=== PATIENT | male | born 1965 | race Hispanic/Latino ===

== ENCOUNTER 2018-03-03 15:44 | Emergency (ER) | payer OTHER ==
[2018-03-03] MEDS ORDERED: MORPHINE SULFATE 8 MG/ML VIAL ONE (16:06)
[2018-03-03] MEDS ORDERED: ONDANSETRON HCL 4 MG/2 ML VIAL ONE (16:06)
[2018-03-03] MEDS ORDERED: KETOROLAC TROMETHAMINE 15MG/ML ONE (17:44)
[2018-03-03] MEDS ORDERED: MORPHINE SULFATE 4 MG/1ML SYG ONE (17:44)
== END 2018-03-03 19:22 | disposition home or self-care (01) ==
LOC: EDH 15:44
DX: S46.091A Other injury of muscle(s) and tendon(s) of the rotator cuff of right shoulder, initial encounter (principal); S43.492A Other sprain of left shoulder joint, initial encounter; X50.9XXA Other and unspecified overexertion or strenuous movements or postures, initial encounter; Y93.89 Activity, other specified; Y92.69 Other specified industrial and construction area as the place of occurrence of the external cause; Y99.8 Other external cause status
CPT/HCPCS: 73030; 96374; 96375; 96376; 99284; J1885; J2270 ×2; J2405

== ENCOUNTER 2018-06-14 11:01 | Inpatient (IN) | payer OTHER ==
[2018-06-14] VITALS: BP 149/99
[~2018-06-14] VITALS: Ht 175.3 cm; Wt 105.6 kg
[~2018-06-14 11:01] MED LIST: AEC81 PO; AMLO5TAB7 PO; CANA1TAB3 PO; LOSA50TA25 PO; PRAV40TA3 PO
[2018-06-14 11:35] LABS: BASOPHILS % (AUTO) 0.6 % (0.0-5.0); EOSINOPHILS % (AUTO) 0.1 % (0.0-8.0); HEMATOCRIT 38.9 % (42-54); LYMPHOCYTES % (AUTO) 7.3 % (21.0-51.0); MEAN CORPUSCULAR HEMOGLOBIN 34.4 pg (27.0-33.0); MEAN CORPUSCULAR HGB CONC 35.2 g/dL (32.0-36.0); MEAN CORPUSCULAR VOLUME 97.9 fL (79-99); MONOCYTES % (AUTO) 5.3 % (3.0-13.0); NEUTROPHILS % (AUTO) 86.7 % (40.0-77.0); NUCLEATED RED BLOOD CELLS 0.7 % (0.0-0.19); PLATELET COUNT (AUTO) 184 K/uL (130-400); RED BLOOD CELL COUNT(AUTO) 3.97 MIL/uL (4.50-6.20); RED CELL DISTRIBUTION WIDTH 14.9 % (11.0-15.5); WHITE BLOOD COUNT (AUTO) 8.8 K/uL (4.8-10.8)
[2018-06-14 11:42] LABS: CREATININE 0.9 mg/dL (0.5-1.5); POTASSIUM 3.1 mmol/L (3.5-5.1)
[2018-06-14 11:47] LABS: BILIRUBIN,TOTAL 0.8 mg/dL (0.2-1.0); TOTAL PROTEIN, SERUM 6.1 g/dL (6.0-8.3)
[2018-06-14 11:48] LABS: INR 1.08 (0.85-1.15); PARTIAL THROMBOPLASTIN TIME 24.4 SEC (26.3-35.5); PROTHROMBIN TIME 11.3 SEC (9.6-11.6)
[2018-06-14 12:51] LABS: B-TYPE NATRIURETIC PEPTIDE 212 pg/mL (0-100)
[2018-06-14] MEDS ORDERED: POTASSIUM BICARB/CIT AC 25 MEQ TABLET.EFF ONE (18:25)
[2018-06-14] MEDS ORDERED: MORPHINE SULFATE 2 MG/ML 1ML SYG ONE (20:02)
[2018-06-14] MEDS ORDERED: ONDANSETRON HCL 4 MG/2 ML VIAL ONE (20:03)
[2018-06-14 21:34] VITALS: BP 143/115
[2018-06-14] MEDS ORDERED: METF-444 PO (22:44)
[2018-06-14] MEDS ORDERED: POTA20TA12 PO (22:44)
[2018-06-14] MEDS ORDERED: LOSA50TA25 PO (22:44)
[2018-06-14] MEDS ORDERED: CLIN300C9 PO (22:50)
[2018-06-14] MEDS: SODIUM CHLORIDE 0.9% 1000ML 1,000 ML IV SCH (23:16)
[2018-06-14] MEDS ORDERED: ONDANSETRON HCL MDV 20ML 2 MG/ML VIAL IV PRN (23:30)
[2018-06-14] MEDS ORDERED: DEXTROSE 50%-WATER 50 ML DISP.SYRIN IV PRN (23:30)
[2018-06-14] MEDS ORDERED: MORPHINE SULFATE 2 MG/ML 1ML SYG IV PRN (23:30)
[2018-06-14] MEDS ORDERED: GLUCAGON 1MG KIT 1 MG ML IM PRN (23:30)
[2018-06-14] MEDS ORDERED: MORPHINE SULFATE 4 MG/1ML SYG IV PRN (23:30)
[2018-06-14] MEDS ORDERED: MAGNESIUM 2GM PREMIX 50ML 50 ML IV PRN (23:45)
[2018-06-14 23:48] LABS: CREATININE 0.6 mg/dL (0.5-1.5); MAGNESIUM 1.8 mg/dL (1.80-2.40)
[2018-06-14 23:53] LABS: POTASSIUM 2.9 mmol/L (3.5-5.1)
[2018-06-15] MEDS ORDERED: POTASSIUM CHLORIDE 20MEQ/100ML 100 ML IV ONE (00:01)
[2018-06-15] MEDS ORDERED: LIDOCAINE HCL-MPF 1% 2ML VIAL ONE (00:01)
[2018-06-15] MEDS ORDERED: MAGNESIUM 2GM PREMIX 50ML 50 ML IV ONE (00:13)
[2018-06-15 02:26] LABS: APPEARANCE,URINE Clear (CLEAR); BILIRUBIN,URINE Negative (NEGATIVE); COLOR,URINE Yellow (YELLOW); GLUCOSE, URINE (UA) Negative (NEGATIVE); KETONES,URINE 15 mg/dL (NEGATIVE); LEUKOCYTE ESTERASE ,URINE Negative (NEGATIVE); NITRATE,URINE Negative (NEGATIVE); OCCULT BLOOD,URINE Negative (NEGATIVE); PH,URINE 6.5 (5.0-8.0); PROTEIN,URINE POS 2+ (NEGATIVE)
[2018-06-15] MEDS: CLINDAMYCIN 600 MG/D5% WATER 50 ML IV SCH ×4 (02:39→23:36)
[2018-06-15 02:46] LABS: RBC,URINE 0-1 /HPF (0-1); WBC,URINE 0-1 /HPF (0-1)
[2018-06-15 02:47] LABS: BACTERIA,URINE Rare /HPF (None Seen); SQUAMOUS EPITHELIAL CELL,UR 0-2 /HPF (0-2)
[2018-06-15] MEDS: POTASSIUM CHLORIDE 20MEQ/100ML 100 ML IV PRN (03:15)
[2018-06-15] MEDS: LIDOCAINE HCL-MPF 1% 2ML VIAL IVP PRN (03:16)
[2018-06-15 04:06] VITALS: BP 158/98
[2018-06-15] MEDS: INSULIN HUMULIN R 100 UNIT/ML 3ML SQ SCH ×5 (06:00→20:14)
[2018-06-15] MEDS: SODIUM CHLORIDE 0.9% 1000ML 1,000 ML IV SCH ×2 (07:16→09:49)
[2018-06-15 07:34] LABS: MEAN CORPUSCULAR HEMOGLOBIN 34.2 pg (27.0-33.0); MEAN CORPUSCULAR HGB CONC 34.8 g/dL (32.0-36.0); MEAN CORPUSCULAR VOLUME 98.2 fL (79-99); NUCLEATED RED BLOOD CELLS 0.5 % (0.0-0.19); PLATELET COUNT (AUTO) 145 K/uL (130-400); RED BLOOD CELL COUNT(AUTO) 3.47 MIL/uL (4.50-6.20); WHITE BLOOD COUNT (AUTO) 7.5 K/uL (4.8-10.8)
[2018-06-15 07:51] LABS: ALBUMIN 2.5 g/dL (3.5-5.0); BILIRUBIN,TOTAL 0.7 mg/dL (0.2-1.0); CREATININE 0.8 mg/dL (0.5-1.5); MAGNESIUM 2.1 mg/dL (1.80-2.40); POTASSIUM 3.3 mmol/L (3.5-5.1)
[2018-06-15 07:52] LABS: HEMOGLOBIN A1C 7.9 % (4.0-6.0)
[2018-06-15 07:56] VITALS: BP 152/92
[2018-06-15] MEDS ORDERED: FAMOTIDINE/PF 20 MG/2 ML VIAL IV SCH (09:00)
[2018-06-15] MEDS ORDERED: DIATR MEGLU/DIATRIZOATE SODIUM 30 ML BOTTLE ONE ×2 (09:13→13:26)
[2018-06-15] MEDS: METFORMIN HCL 500 MG TAB.SR.24H PO SCH (09:29)
[2018-06-15] MEDS: ENOXAPARIN SODIUM 100 MG/1 ML SQ SCH (09:49)
[2018-06-15] MEDS: LOSARTAN 50 MG TABLET PO SCH ×2 (09:56→20:14)
[2018-06-15 11:28] VITALS: BP 147/93
[2018-06-15] MEDS ORDERED: IOHEXOL-350 75 ML VIAL IV ONE (12:06)
[2018-06-15] MEDS: LACTULOSE 20 GM/30 ML UDCUP PO SCH (15:17)
[2018-06-15] MEDS: AMLODIPINE BESYLATE 5 MG TAB PO SCH (15:17)
[2018-06-15 15:18] VITALS: BP 148/99
[2018-06-15] MEDS: POTASSIUM CHLORIDE 20 MEQ ERTAB PO SCH ×2 (15:18→20:14)
[2018-06-15] MEDS: ASPIRIN 81 MG EC TAB PO SCH (15:19)
[2018-06-15 19:00] VITALS: BP 136/101
[2018-06-15] MEDS: DOCUSATE SODIUM 100 MG CAP PO SCH (20:14)
[2018-06-15] MEDS: SIMVASTATIN 20 MG TABLET PO SCH (20:14)
[2018-06-15 23:00] VITALS: BP 139/88
[2018-06-16 03:00] VITALS: BP 169/113
[2018-06-16] MEDS: INSULIN HUMULIN R 100 UNIT/ML 3ML SQ SCH ×4 (05:01→20:55)
[2018-06-16 05:05] LABS: BASOPHILS % (AUTO) 0.1 % (0.0-5.0); EOSINOPHILS % (AUTO) 0.1 % (0.0-8.0); HEMATOCRIT 34.2 % (42-54); LYMPHOCYTES % (AUTO) 8.6 % (21.0-51.0); MEAN CORPUSCULAR HEMOGLOBIN 34.8 pg (27.0-33.0); MEAN CORPUSCULAR HGB CONC 35.3 g/dL (32.0-36.0); MEAN CORPUSCULAR VOLUME 98.8 fL (79-99); MONOCYTES % (AUTO) 6.9 % (3.0-13.0); NEUTROPHILS % (AUTO) 84.3 % (40.0-77.0); NUCLEATED RED BLOOD CELLS 0.2 % (0.0-0.19); PLATELET COUNT (AUTO) 151 K/uL (130-400); RED BLOOD CELL COUNT(AUTO) 3.46 MIL/uL (4.50-6.20); RED CELL DISTRIBUTION WIDTH 15.4 % (11.0-15.5); WHITE BLOOD COUNT (AUTO) 7.3 K/uL (4.8-10.8)
[2018-06-16] MEDS: CLONIDINE HCL 0.1 MG TABLET PO PRN (05:10)
[2018-06-16] MEDS: CLINDAMYCIN 600 MG/D5% WATER 50 ML IV SCH ×2 (06:10→14:35)
[2018-06-16 07:36] LABS: MAGNESIUM 1.9 mg/dL (1.80-2.40)
[2018-06-16 07:52] VITALS: BP 168/93
[2018-06-16 07:57] LABS: POTASSIUM 2.8 mmol/L (3.5-5.1)
[2018-06-16] MEDS: METFORMIN HCL 500 MG TAB.SR.24H PO SCH (08:00)
[2018-06-16] MEDS ORDERED: POTASSIUM CHLORIDE 10% ELIXIR 20 MEQ/15 ML UDCUP PO PRN (08:45)
[2018-06-16] MEDS ORDERED: LIDOCAINE HCL-MPF 1% 2ML VIAL IVP PRN (08:45)
[2018-06-16] MEDS ORDERED: POTASSIUM CHLORIDE 20MEQ/100ML 100 ML IV PRN (08:45)
[2018-06-16] MEDS ORDERED: POTASSIUM CHLORIDE 20 MEQ ERTAB PO SCH (09:00)
[2018-06-16] MEDS ORDERED: AMLODIPINE BESYLATE 5 MG TAB PO SCH (09:00)
[2018-06-16] MEDS ORDERED: ASPIRIN 81 MG EC TAB PO SCH (09:00)
[2018-06-16] MEDS: PANTOPRAZOLE SODIUM 40 MG TABLET.DR PO SCH (09:06)
[2018-06-16] MEDS: ASPIRIN 81 MG EC TAB PO SCH (09:06)
[2018-06-16] MEDS: LOSARTAN 50 MG TABLET PO SCH ×2 (09:06→20:55)
[2018-06-16] MEDS: POTASSIUM CHLORIDE 20 MEQ ERTAB PO SCH ×4 (09:07→18:00)
[2018-06-16] MEDS: AMLODIPINE BESYLATE 5 MG TAB PO SCH (09:07)
[2018-06-16] MEDS: DOCUSATE SODIUM 100 MG CAP PO SCH ×2 (09:07→20:55)
[2018-06-16] MEDS: ENOXAPARIN SODIUM 100 MG/1 ML SQ SCH (09:12)
[2018-06-16] MEDS: LIDOCAINE HCL-MPF 1% 2ML VIAL IVP PRN (09:12)
[2018-06-16] MEDS: POTASSIUM CHLORIDE 20MEQ/100ML 100 ML IV PRN (09:13)
[2018-06-16] MEDS: LACTULOSE 20 GM/30 ML UDCUP PO SCH (11:15)
[2018-06-16 11:49] VITALS: BP 158/95
[2018-06-16 15:49] VITALS: BP 149/94
[2018-06-16 19:00] VITALS: BP 161/108
[2018-06-16] MEDS: SIMVASTATIN 20 MG TABLET PO SCH (20:55)
[2018-06-16 23:00] VITALS: BP 162/107
[2018-06-17] MEDS ORDERED: CLINDAMYCIN 600 MG/D5% WATER 50 ML IV ONE (00:36)
[2018-06-17] MEDS: CLINDAMYCIN 600 MG/D5% WATER 50 ML IV SCH (00:38)
[2018-06-17] MEDS: CLONIDINE HCL 0.1 MG TABLET PO PRN (00:39)
[2018-06-17 03:00] VITALS: BP 157/99
[2018-06-17] MEDS: POTASSIUM CHLORIDE 20 MEQ ERTAB PO PRN ×3 (05:47→18:36)
[2018-06-17] MEDS: INSULIN HUMULIN R 100 UNIT/ML 3ML SQ SCH ×4 (06:52→21:00)
[2018-06-17 08:00] VITALS: BP 155/111
[2018-06-17] MEDS: DOCUSATE SODIUM 100 MG CAP PO SCH ×2 (08:19→21:00)
[2018-06-17] MEDS: PANTOPRAZOLE SODIUM 40 MG TABLET.DR PO SCH (08:19)
[2018-06-17] MEDS: METFORMIN HCL 500 MG TAB.SR.24H PO SCH (08:19)
[2018-06-17] MEDS: POTASSIUM CHLORIDE 20 MEQ ERTAB PO SCH (08:21)
[2018-06-17] MEDS: LOSARTAN 50 MG TABLET PO SCH ×2 (08:21→21:37)
[2018-06-17] MEDS: ASPIRIN 81 MG EC TAB PO SCH (08:21)
[2018-06-17] MEDS: AMLODIPINE BESYLATE 5 MG TAB PO SCH (08:21)
[2018-06-17] MEDS: LACTULOSE 20 GM/30 ML UDCUP PO SCH (08:22)
[2018-06-17] MEDS: ENOXAPARIN SODIUM 100 MG/1 ML SQ SCH (08:22)
[2018-06-17 11:38] VITALS: BP 144/95
[2018-06-17 15:59] VITALS: BP 133/92
[2018-06-17 19:38] VITALS: BP 122/87
[2018-06-17] MEDS: SIMVASTATIN 20 MG TABLET PO SCH (21:37)
[2018-06-17] MEDS ORDERED: LACTULOSE 20 GM/30 ML UDCUP PO ONE (22:20)
[2018-06-17] MEDS ORDERED: MAG HYDROX/AL HYDROX/SIMETH ES 30 ML SUSP UDCUP PO ONE (22:20)
[2018-06-17 23:47] VITALS: BP 157/99
[2018-06-18] MEDS: POTASSIUM CHLORIDE 20 MEQ ERTAB PO PRN ×3 (02:51→17:04)
[2018-06-18 03:52] VITALS: BP 143/94
[2018-06-18 05:00] LABS: BASOPHILS % (AUTO) 0.1 % (0.0-5.0); EOSINOPHILS % (AUTO) 0.1 % (0.0-8.0); HEMATOCRIT 34.3 % (42-54); LYMPHOCYTES % (AUTO) 8.1 % (21.0-51.0); MEAN CORPUSCULAR HEMOGLOBIN 34.7 pg (27.0-33.0); MEAN CORPUSCULAR HGB CONC 35.2 g/dL (32.0-36.0); MEAN CORPUSCULAR VOLUME 98.6 fL (79-99); NEUTROPHILS % (AUTO) 85.7 % (40.0-77.0); NUCLEATED RED BLOOD CELLS 0.2 % (0.0-0.19); PLATELET COUNT (AUTO) 156 K/uL (130-400); RED BLOOD CELL COUNT(AUTO) 3.47 MIL/uL (4.50-6.20); RED CELL DISTRIBUTION WIDTH 15.3 % (11.0-15.5); WHITE BLOOD COUNT (AUTO) 7.7 K/uL (4.8-10.8)
[2018-06-18 05:19] LABS: ALBUMIN 2.6 g/dL (3.5-5.0); BILIRUBIN,TOTAL 0.7 mg/dL (0.2-1.0); CREATININE 0.8 mg/dL (0.5-1.5); POTASSIUM 3.1 mmol/L (3.5-5.1); TOTAL PROTEIN, SERUM 5.2 g/dL (6.0-8.3)
[2018-06-18] MEDS: INSULIN HUMULIN R 100 UNIT/ML 3ML SQ SCH ×4 (06:05→20:39)
[2018-06-18 08:00] VITALS: BP 151/96
[2018-06-18] MEDS: POTASSIUM CHLORIDE 20 MEQ ERTAB PO SCH (09:51)
[2018-06-18] MEDS: LOSARTAN 50 MG TABLET PO SCH ×2 (09:51→20:39)
[2018-06-18] MEDS: PANTOPRAZOLE SODIUM 40 MG TABLET.DR PO SCH (09:51)
[2018-06-18] MEDS: ASPIRIN 81 MG EC TAB PO SCH (09:51)
[2018-06-18] MEDS: DOCUSATE SODIUM 100 MG CAP PO SCH ×2 (09:51→20:38)
[2018-06-18] MEDS: SPIRONOLACTONE 25 MG TAB PO SCH (09:51)
[2018-06-18] MEDS: AMLODIPINE BESYLATE 5 MG TAB PO SCH ×2 (09:51→20:39)
[2018-06-18] MEDS: ENOXAPARIN SODIUM 100 MG/1 ML SQ SCH (09:52)
[2018-06-18] MEDS: METFORMIN HCL 500 MG TAB.SR.24H PO SCH (09:57)
[2018-06-18] MEDS ORDERED: ALPRAZOLAM 0.25 MG TABLET PO SCH (10:00)
[2018-06-18] MEDS: LACTULOSE 20 GM/30 ML UDCUP PO SCH (11:15)
[2018-06-18] MEDS ORDERED: METOPROLOL TARTRATE 25 MG TAB PO SCH (11:45)
[2018-06-18 11:53] VITALS: BP 136/102
[2018-06-18 16:00] VITALS: BP 141/95
[2018-06-18 20:00] VITALS: BP 134/83
[2018-06-18] MEDS: SIMVASTATIN 20 MG TABLET PO SCH (20:39)
[2018-06-19] VITALS (7 sets, daily range): BP systolic 116–149; BP diastolic 85–101
[2018-06-19 05:53] LABS: EOSINOPHILS % (AUTO) 0.1 % (0.0-8.0); HEMATOCRIT 35.5 % (42-54); LYMPHOCYTES % (AUTO) 7.3 % (21.0-51.0); MEAN CORPUSCULAR HGB CONC 34.3 g/dL (32.0-36.0); MEAN CORPUSCULAR VOLUME 99.2 fL (79-99); MONOCYTES % (AUTO) 5.5 % (3.0-13.0); NEUTROPHILS % (AUTO) 87.1 % (40.0-77.0); NUCLEATED RED BLOOD CELLS 0.3 % (0.0-0.19); PLATELET COUNT (AUTO) 137 K/uL (130-400); RED BLOOD CELL COUNT(AUTO) 3.58 MIL/uL (4.50-6.20); RED CELL DISTRIBUTION WIDTH 15.5 % (11.0-15.5); WHITE BLOOD COUNT (AUTO) 7.9 K/uL (4.8-10.8)
[2018-06-19 06:12] LABS: CREATININE 0.7 mg/dL (0.5-1.5); MAGNESIUM 1.9 mg/dL (1.80-2.40)
[2018-06-19] MEDS: INSULIN HUMULIN R 100 UNIT/ML 3ML SQ SCH ×4 (06:26→21:00)
[2018-06-19] MEDS: POTASSIUM CHLORIDE 20 MEQ ERTAB PO PRN ×4 (06:52→23:17)
[2018-06-19] MEDS ORDERED: MAGNESIUM 2GM PREMIX 50ML 50 ML IV PRN (08:00)
[2018-06-19] MEDS: DOCUSATE SODIUM 100 MG CAP PO SCH ×2 (08:56→19:56)
[2018-06-19] MEDS: ASPIRIN 81 MG EC TAB PO SCH (08:56)
[2018-06-19] MEDS: AMLODIPINE BESYLATE 5 MG TAB PO SCH ×2 (08:56→19:56)
[2018-06-19] MEDS: POTASSIUM CHLORIDE 20 MEQ ERTAB PO SCH (08:56)
[2018-06-19] MEDS: SPIRONOLACTONE 25 MG TAB PO SCH (08:56)
[2018-06-19] MEDS: LOSARTAN 50 MG TABLET PO SCH ×2 (08:56→19:56)
[2018-06-19] MEDS: METOPROLOL TARTRATE 25 MG TAB PO SCH (08:56)
[2018-06-19] MEDS: METFORMIN HCL 500 MG TAB.SR.24H PO SCH (08:56)
[2018-06-19] MEDS: PANTOPRAZOLE SODIUM 40 MG TABLET.DR PO SCH (08:57)
[2018-06-19] MEDS: ENOXAPARIN SODIUM 100 MG/1 ML SQ SCH (08:57)
[2018-06-19] MEDS: LACTULOSE 20 GM/30 ML UDCUP PO SCH (10:33)
[2018-06-19] MEDS ORDERED: SPIRONOLACTONE 25 MG TAB PO SCH (11:45)
[2018-06-19] MEDS ORDERED: HYDRALAZINE HCL 20 MG/ML VIAL IV PRN (11:45)
[2018-06-19] MEDS: POTASSIUM CHLORIDE 20MEQ/100ML 100 ML IV PRN (16:45)
[2018-06-19] MEDS: LIDOCAINE HCL-MPF 1% 2ML VIAL IVP PRN (16:45)
[2018-06-19] MEDS: SIMVASTATIN 20 MG TABLET PO SCH (19:56)
[2018-06-20] VITALS (9 sets, daily range): BP systolic 133–156; BP diastolic 44–104
[2018-06-20] MEDS: POTASSIUM CHLORIDE 20 MEQ ERTAB PO PRN (02:52)
[2018-06-20 06:08] LABS: BASOPHILS % (AUTO) 0.1 % (0.0-5.0); EOSINOPHILS % (AUTO) 0.1 % (0.0-8.0); HEMATOCRIT 37.2 % (42-54); LYMPHOCYTES % (AUTO) 6.9 % (21.0-51.0); MEAN CORPUSCULAR HEMOGLOBIN 34.7 pg (27.0-33.0); MEAN CORPUSCULAR HGB CONC 35.1 g/dL (32.0-36.0); MEAN CORPUSCULAR VOLUME 98.9 fL (79-99); MONOCYTES % (AUTO) 6.1 % (3.0-13.0); NEUTROPHILS % (AUTO) 86.8 % (40.0-77.0); NUCLEATED RED BLOOD CELLS 0.2 % (0.0-0.19); PLATELET COUNT (AUTO) 166 K/uL (130-400); RED BLOOD CELL COUNT(AUTO) 3.76 MIL/uL (4.50-6.20); RED CELL DISTRIBUTION WIDTH 15.8 % (11.0-15.5)
[2018-06-20 06:23] LABS: INR 1.09 (0.85-1.15); PARTIAL THROMBOPLASTIN TIME 26.4 SEC (26.3-35.5); PROTHROMBIN TIME 11.4 SEC (9.6-11.6)
[2018-06-20 06:25] LABS: ALBUMIN 2.8 g/dL (3.5-5.0); BILIRUBIN,TOTAL 0.9 mg/dL (0.2-1.0); CREATININE 0.7 mg/dL (0.5-1.5); POTASSIUM 3.5 mmol/L (3.5-5.1); TOTAL PROTEIN, SERUM 5.6 g/dL (6.0-8.3)
[2018-06-20] MEDS: INSULIN HUMULIN R 100 UNIT/ML 3ML SQ SCH ×4 (06:26→21:00)
[2018-06-20] MEDS: LIDOCAINE HCL-MPF 1% 2ML VIAL IVP PRN (06:36)
[2018-06-20] MEDS: POTASSIUM CHLORIDE 20MEQ/100ML 100 ML IV PRN (06:36)
[2018-06-20] MEDS: METFORMIN HCL 500 MG TAB.SR.24H PO SCH (08:00)
[2018-06-20] MEDS: DOCUSATE SODIUM 100 MG CAP PO SCH ×2 (09:00→21:00)
[2018-06-20] MEDS: PANTOPRAZOLE SODIUM 40 MG TABLET.DR PO SCH (09:00)
[2018-06-20] MEDS: POTASSIUM CHLORIDE 20 MEQ ERTAB PO SCH (09:00)
[2018-06-20] MEDS: ENOXAPARIN SODIUM 100 MG/1 ML SQ SCH (09:00)
[2018-06-20] MEDS: SPIRONOLACTONE 25 MG TAB PO SCH (09:00)
[2018-06-20] MEDS: ASPIRIN 81 MG EC TAB PO SCH (09:00)
[2018-06-20] MEDS: AMLODIPINE BESYLATE 5 MG TAB PO SCH (09:04)
[2018-06-20] MEDS: LOSARTAN 50 MG TABLET PO SCH ×2 (09:04→21:36)
[2018-06-20] MEDS: METOPROLOL TARTRATE 25 MG TAB PO SCH (09:04)
[2018-06-20] MEDS: LACTULOSE 20 GM/30 ML UDCUP PO SCH (11:15)
[2018-06-20] MEDS ORDERED: IOHEXOL 350 MG/ML 100ML INFUS..BTL IV ONE (15:42)
[2018-06-20] MEDS ORDERED: LIDOCAINE HCL 2% 20ML ONE (15:42)
[2018-06-20] MEDS ORDERED: IOHEXOL-350 50ML VIAL IV ONE (15:42)
[2018-06-20] MEDS ORDERED: NITROGLYCERIN 5 MG/ML 10 ML VIAL IV ONE (16:24)
[2018-06-20] MEDS ORDERED: FENTANYL CITRATE PF 50 MCG/1 ML 2ML VIAL ONE (16:35)
[2018-06-20] MEDS ORDERED: MIDAZOLAM HCL 1 MG/ML 2ML VIAL ONE (16:35)
[2018-06-20] MEDS: SODIUM CHLORIDE 0.9% 10 ML VIAL IVP SCH (18:03)
[2018-06-20] MEDS: SIMVASTATIN 20 MG TABLET PO SCH (21:35)
[2018-06-21] MEDS: LOSARTAN 50 MG TABLET PO SCH ×3 (00:15→20:39)
[2018-06-21] MEDS: SIMVASTATIN 20 MG TABLET PO SCH ×2 (00:16→20:39)
[2018-06-21] MEDS: AMLODIPINE BESYLATE 5 MG TAB PO SCH ×3 (00:17→20:39)
[2018-06-21] MEDS: SODIUM CHLORIDE 0.9% 10 ML VIAL IVP SCH ×4 (01:23→20:56)
[2018-06-21 03:22] VITALS: BP 129/84
[2018-06-21 03:47] LABS: BASOPHILS % (AUTO) 0.1 % (0.0-5.0); HEMATOCRIT 37.2 % (42-54); LYMPHOCYTES % (AUTO) 4.7 % (21.0-51.0); MEAN CORPUSCULAR HEMOGLOBIN 34.1 pg (27.0-33.0); MEAN CORPUSCULAR HGB CONC 34.3 g/dL (32.0-36.0); MEAN CORPUSCULAR VOLUME 99.5 fL (79-99); MONOCYTES % (AUTO) 5.4 % (3.0-13.0); NEUTROPHILS % (AUTO) 89.8 % (40.0-77.0); NUCLEATED RED BLOOD CELLS 0.5 % (0.0-0.19); PLATELET COUNT (AUTO) 140 K/uL (130-400); RED BLOOD CELL COUNT(AUTO) 3.73 MIL/uL (4.50-6.20); RED CELL DISTRIBUTION WIDTH 15.5 % (11.0-15.5); WHITE BLOOD COUNT (AUTO) 9.7 K/uL (4.8-10.8)
[2018-06-21 04:07] LABS: CREATININE 0.7 mg/dL (0.5-1.5)
[2018-06-21 04:08] LABS: POTASSIUM 2.9 mmol/L (3.5-5.1)
[2018-06-21] MEDS ORDERED: POTASSIUM CHLORIDE 10 MEQ/TAB.SA PO ONE ×6 (04:23→06:35)
[2018-06-21] MEDS ORDERED: SODIUM CHLORIDE 0.9% 250 ML IV ONE (04:24)
[2018-06-21] MEDS: POTASSIUM CHLORIDE 20MEQ/100ML 100 ML IV PRN (04:31)
[2018-06-21] MEDS: LIDOCAINE HCL-MPF 1% 2ML VIAL IVP PRN (04:31)
[2018-06-21] MEDS: INSULIN HUMULIN R 100 UNIT/ML 3ML SQ SCH ×4 (06:04→20:55)
[2018-06-21 07:26] VITALS: BP_SYST 106; BP_SYST 133; BP_DIAS 49; BP_DIAS 71
[2018-06-21] MEDS: SPIRONOLACTONE 25 MG TAB PO SCH (08:45)
[2018-06-21] MEDS: METOPROLOL TARTRATE 25 MG TAB PO SCH (08:45)
[2018-06-21] MEDS: DOCUSATE SODIUM 100 MG CAP PO SCH ×2 (08:45→20:39)
[2018-06-21] MEDS: PANTOPRAZOLE SODIUM 40 MG TABLET.DR PO SCH (08:46)
[2018-06-21] MEDS: POTASSIUM CHLORIDE 20 MEQ ERTAB PO SCH (08:46)
[2018-06-21] MEDS: ASPIRIN 81 MG EC TAB PO SCH (08:46)
[2018-06-21] MEDS: METFORMIN HCL 500 MG TAB.SR.24H PO SCH (08:49)
[2018-06-21] MEDS: LACTULOSE 20 GM/30 ML UDCUP PO SCH (10:26)
[2018-06-21] MEDS: AMILORIDE HCL 5 MG TABLET PO SCH (10:44)
[2018-06-21 11:22] VITALS: BP 133/99
[2018-06-21 16:35] VITALS: BP 130/58
[2018-06-21 19:40] VITALS: BP 137/98
[2018-06-21 23:52] VITALS: BP 130/93
[2018-06-22 03:38] LABS: HEMATOCRIT 35.1 % (42-54); MEAN CORPUSCULAR HEMOGLOBIN 35.1 pg (27.0-33.0); MEAN CORPUSCULAR HGB CONC 34.9 g/dL (32.0-36.0); MEAN CORPUSCULAR VOLUME 100.6 fL (79-99); NUCLEATED RED BLOOD CELLS 0.2 % (0.0-0.19); PLATELET COUNT (AUTO) 139 K/uL (130-400); RED BLOOD CELL COUNT(AUTO) 3.49 MIL/uL (4.50-6.20); RED CELL DISTRIBUTION WIDTH 15.9 % (11.0-15.5); WHITE BLOOD COUNT (AUTO) 9.5 K/uL (4.8-10.8)
[2018-06-22 03:39] VITALS: BP 141/101
[2018-06-22 03:55] LABS: CREATININE 0.8 mg/dL (0.5-1.5); POTASSIUM 3.7 mmol/L (3.5-5.1); TROPONIN I 0.1 ng/mL (0.00-0.06)
[2018-06-22] MEDS: INSULIN HUMULIN R 100 UNIT/ML 3ML SQ SCH ×4 (05:34→21:00)
[2018-06-22] MEDS: GLIPIZIDE 5 MG TABLET PO SCH (06:46)
[2018-06-22 07:26] VITALS: BP 143/107
[2018-06-22] MEDS: AMLODIPINE BESYLATE 5 MG TAB PO SCH ×2 (08:17→22:04)
[2018-06-22] MEDS: DOCUSATE SODIUM 100 MG CAP PO SCH ×2 (08:17→22:04)
[2018-06-22] MEDS: METOPROLOL TARTRATE 25 MG TAB PO SCH (08:17)
[2018-06-22] MEDS: PANTOPRAZOLE SODIUM 40 MG TABLET.DR PO SCH (08:18)
[2018-06-22] MEDS: LOSARTAN 50 MG TABLET PO SCH ×2 (08:18→22:04)
[2018-06-22] MEDS: ASPIRIN 81 MG EC TAB PO SCH (08:18)
[2018-06-22] MEDS: SODIUM CHLORIDE 0.9% 10 ML VIAL IVP SCH ×2 (08:19→17:28)
[2018-06-22] MEDS: POTASSIUM CHLORIDE 20 MEQ ERTAB PO SCH (08:19)
[2018-06-22] MEDS: LACTULOSE 20 GM/30 ML UDCUP PO SCH (10:31)
[2018-06-22] MEDS: AMILORIDE HCL 5 MG TABLET PO SCH (10:31)
[2018-06-22 16:16] VITALS: BP 140/89
[2018-06-22] MEDS: ALPRAZOLAM 0.25 MG TABLET PO PRN (17:28)
[2018-06-22 17:30] VITALS: BP 150/97
[2018-06-22 19:00] VITALS: BP 137/88
[2018-06-22] MEDS: SIMVASTATIN 20 MG TABLET PO SCH (22:04)
[2018-06-23] VITALS: BP 134/92
[2018-06-23] MEDS: SODIUM CHLORIDE 0.9% 10 ML VIAL IVP SCH ×3 (00:29→18:02)
[2018-06-23 04:00] VITALS: BP 134/90
[2018-06-23 04:52] LABS: HEMATOCRIT 34.1 % (42-54); MEAN CORPUSCULAR HEMOGLOBIN 34.6 pg (27.0-33.0); MEAN CORPUSCULAR HGB CONC 34.8 g/dL (32.0-36.0); MEAN CORPUSCULAR VOLUME 99.3 fL (79-99); NUCLEATED RED BLOOD CELLS 0.3 % (0.0-0.19); PLATELET COUNT (AUTO) 123 K/uL (130-400); RED BLOOD CELL COUNT(AUTO) 3.43 MIL/uL (4.50-6.20); RED CELL DISTRIBUTION WIDTH 16.1 % (11.0-15.5)
[2018-06-23 05:08] LABS: CREATININE 0.7 mg/dL (0.5-1.5); POTASSIUM 3.7 mmol/L (3.5-5.1)
[2018-06-23] MEDS: INSULIN HUMULIN R 100 UNIT/ML 3ML SQ SCH ×4 (06:10→21:00)
[2018-06-23 07:00] VITALS: BP 137/101
[2018-06-23] MEDS: ASPIRIN 81 MG EC TAB PO SCH (09:12)
[2018-06-23] MEDS: DOCUSATE SODIUM 100 MG CAP PO SCH ×2 (09:12→21:01)
[2018-06-23] MEDS: AMLODIPINE BESYLATE 5 MG TAB PO SCH ×2 (09:12→21:01)
[2018-06-23] MEDS: AMILORIDE HCL 5 MG TABLET PO SCH (09:12)
[2018-06-23] MEDS: LOSARTAN 50 MG TABLET PO SCH ×2 (09:12→21:01)
[2018-06-23] MEDS: POTASSIUM CHLORIDE 20 MEQ ERTAB PO SCH (09:12)
[2018-06-23] MEDS: PANTOPRAZOLE SODIUM 40 MG TABLET.DR PO SCH (09:12)
[2018-06-23] MEDS: METOPROLOL TARTRATE 25 MG TAB PO SCH (09:13)
[2018-06-23] MEDS: GLIPIZIDE 5 MG TABLET PO SCH (09:13)
[2018-06-23 11:00] VITALS: BP 128/93
[2018-06-23] MEDS: LACTULOSE 20 GM/30 ML UDCUP PO SCH (11:15)
[2018-06-23] MEDS: ALPRAZOLAM 0.25 MG TABLET PO PRN (11:58)
[2018-06-23 15:57] VITALS: BP 134/95
[2018-06-23 19:00] VITALS: BP 130/75
[2018-06-23] MEDS: SIMVASTATIN 20 MG TABLET PO SCH (21:01)
[2018-06-24] VITALS: BP 131/93
[2018-06-24] MEDS: SODIUM CHLORIDE 0.9% 10 ML VIAL IVP SCH ×2 (02:10→09:15)
[2018-06-24 04:00] VITALS: BP 119/85
[2018-06-24] MEDS: INSULIN HUMULIN R 100 UNIT/ML 3ML SQ SCH ×2 (06:33→11:18)
[2018-06-24] MEDS: GLIPIZIDE 5 MG TABLET PO SCH (07:30)
[2018-06-24 07:55] VITALS: BP 133/97
[2018-06-24] MEDS: AMILORIDE HCL 5 MG TABLET PO SCH (10:03)
[2018-06-24] MEDS: LOSARTAN 50 MG TABLET PO SCH (10:04)
[2018-06-24] MEDS: ASPIRIN 81 MG EC TAB PO SCH (10:04)
[2018-06-24] MEDS: DOCUSATE SODIUM 100 MG CAP PO SCH (10:04)
[2018-06-24] MEDS: POTASSIUM CHLORIDE 20 MEQ ERTAB PO SCH (10:04)
[2018-06-24] MEDS: AMLODIPINE BESYLATE 5 MG TAB PO SCH (10:04)
[2018-06-24] MEDS: METOPROLOL TARTRATE 25 MG TAB PO SCH (10:04)
[2018-06-24] MEDS: PANTOPRAZOLE SODIUM 40 MG TABLET.DR PO SCH (10:04)
[2018-06-24] MEDS: LACTULOSE 20 GM/30 ML UDCUP PO SCH (11:15)
[2018-06-24 11:35] VITALS: BP 130/91
== END 2018-06-24 15:05 | disposition home or self-care (01) | DRG 190 ==
LOC: EDH 11:01 → EDHIP 20:00 → 3DH 21:00 → 2BH 06-20 18:02 → 3BH 06-22 17:41
PROVIDERS: ADMIT Internal Medicine; ATTEND Internal Medicine
PROC: 4A023N7 Measurement of Cardiac Sampling and Pressure, Left Heart, Percutaneous Approach (ICD-10-PCS; principal; 2018-06-20)
PROC: B2111ZZ Fluoroscopy of Multiple Coronary Arteries using Low Osmolar Contrast (ICD-10-PCS; 2018-06-20)
PROC: B2151ZZ Fluoroscopy of Left Heart using Low Osmolar Contrast (ICD-10-PCS; 2018-06-20)
DX: I21.4 Non-ST elevation (NSTEMI) myocardial infarction (principal); E44.0 Moderate protein-calorie malnutrition; E83.42 Hypomagnesemia; I11.9 Hypertensive heart disease without heart failure; E66.01 Morbid (severe) obesity due to excess calories; E11.9 Type 2 diabetes mellitus without complications; I45.10 Unspecified right bundle-branch block; F41.9 Anxiety disorder, unspecified; E78.5 Hyperlipidemia, unspecified; N20.0 Calculus of kidney; E78.00 Pure hypercholesterolemia, unspecified; N28.9 Disorder of kidney and ureter, unspecified; K52.9 Noninfective gastroenteritis and colitis, unspecified; I25.110 Atherosclerotic heart disease of native coronary artery with unstable angina pectoris; K56.41 Fecal impaction; E87.6 Hypokalemia; Z68.36 Body mass index [BMI] 36.0-36.9, adult; Z79.84 Long term (current) use of oral hypoglycemic drugs; Z82.49 Family history of ischemic heart disease and other diseases of the circulatory system; Z79.82 Long term (current) use of aspirin; Z79.899 Other long term (current) drug therapy
CPT/HCPCS: 36415; 71045; 74021; 74178; 76882; 80048; 80053; 81001; 82550; 82948; 83036; 83690; 83735; 83874; 83880; 83935; 83970; 84132; 84133; 84484; 85025; 85027; 85610; 85730; 93005; 93458; 99156; 99157; C1894; J0360; J1644; J1650; J1815; J2250; J2405; J3010; J3475; J3480; J3490; J7030; Q9963; Q9967

== ENCOUNTER 2018-07-21 00:26 | Inpatient (IN) | payer OTHER ==
[~2018-07-21] VITALS: Ht 172.7 cm; Wt 99.5 kg
[~2018-07-21 00:26] MED LIST changes: -CANA1TAB3 PO; +METF-444 PO; +POTA20TA12 PO
[2018-07-21 00:48] LABS: INR 1.32 (0.85-1.15); PARTIAL THROMBOPLASTIN TIME 24.7 SEC (26.3-35.5); PROTHROMBIN TIME 13.8 SEC (9.6-11.6)
[2018-07-21 00:52] LABS: BASOPHILS % (AUTO) 0.8 % (0.0-5.0); HEMATOCRIT 22.6 % (42-54); LYMPHOCYTES % (AUTO) 9.7 % (21.0-51.0); MEAN CORPUSCULAR HEMOGLOBIN 31.8 pg (27.0-33.0); MEAN CORPUSCULAR HGB CONC 33.3 g/dL (32.0-36.0); MEAN CORPUSCULAR VOLUME 95.3 fL (79-99); MONOCYTES % (AUTO) 6.8 % (3.0-13.0); NEUTROPHILS % (AUTO) 82.7 % (40.0-77.0); NUCLEATED RED BLOOD CELLS 0.5 % (0.0-0.19); PLATELET COUNT (AUTO) 113 K/uL (130-400); RED BLOOD CELL COUNT(AUTO) 2.37 MIL/uL (4.50-6.20); RED CELL DISTRIBUTION WIDTH 18.5 % (11.0-15.5); WHITE BLOOD COUNT (AUTO) 13.6 K/uL (4.8-10.8)
[2018-07-21 00:54] LABS: ALBUMIN 1.7 g/dL (3.5-5.0); BILIRUBIN,DIRECT 0.1 mg/dL (0.0-0.3); BILIRUBIN,TOTAL 0.3 mg/dL (0.2-1.0); CREATININE 1.3 mg/dL (0.5-1.5); POTASSIUM 3.3 mmol/L (3.5-5.1); TOTAL PROTEIN, SERUM 3.8 g/dL (6.0-8.3)
[2018-07-21] MEDS ORDERED: ZOSYN 3.375GM+NS 50ML 50 ML IV ONE (01:06)
[2018-07-21 02:10] LABS: APPEARANCE,URINE Cloudy (CLEAR); BILIRUBIN,URINE Negative (NEGATIVE); COLOR,URINE Yellow (YELLOW); GLUCOSE, URINE (UA) Negative (NEGATIVE); KETONES,URINE Negative (NEGATIVE); LEUKOCYTE ESTERASE ,URINE Negative (NEGATIVE); NITRATE,URINE Negative (NEGATIVE); OCCULT BLOOD,URINE Negative (NEGATIVE); PROTEIN,URINE Negative (NEGATIVE); UROBILINOGEN,URINE 0.2 mg/dL (0.2-1.0)
[2018-07-21 02:18] LABS: AMORPHOUS SEDIMENT,UR Few /LPF (None Seen); BACTERIA,URINE None Seen /HPF (None Seen); MUCUS,URINE Few LPF (None Seen); RBC,URINE None Seen /HPF (0-1); SQUAMOUS EPITHELIAL CELL,UR Few /HPF (0-2); WBC,URINE 0-1 /HPF (0-1)
[2018-07-21] MEDS ORDERED: LIDOCAINE HCL-MPF 1% 2ML VIAL IVP PRN (03:30)
[2018-07-21] MEDS ORDERED: GLUCAGON 1MG KIT 1 MG ML IM PRN (04:00)
[2018-07-21] MEDS ORDERED: DEXTROSE 50%-WATER 50 ML DISP.SYRIN IV PRN (04:00)
[2018-07-21] MEDS ORDERED: MORPHINE SULFATE 2 MG/ML 1ML SYG IV PRN (05:00)
[2018-07-21] MEDS ORDERED: MORPHINE SULFATE 4 MG/1ML SYG IV PRN (05:00)
[2018-07-21] MEDS ORDERED: ACETAMINOPHEN 325 MG TAB PO PRN (05:00)
[2018-07-21] MEDS ORDERED: NITROGLYCERIN 0.4 MG SL TAB SL PRN (05:00)
[2018-07-21] MEDS: INSULIN HUMULIN R 100 UNIT/ML 3ML SQ SCH ×3 (06:00→17:02)
[2018-07-21 06:03] VITALS: BP 132/63
[2018-07-21 07:49] LABS: ALBUMIN 1.7 g/dL (3.5-5.0); BILIRUBIN,TOTAL 0.5 mg/dL (0.2-1.0); CREATININE 1.4 mg/dL (0.5-1.5); MAGNESIUM 1.9 mg/dL (1.80-2.40); POTASSIUM 3.3 mmol/L (3.5-5.1); TOTAL PROTEIN, SERUM 3.6 g/dL (6.0-8.3)
[2018-07-21 08:00] LABS: HEMOGLOBIN A1C 6.2 % (4.0-6.0)
[2018-07-21 08:06] LABS: TROPONIN I 1.05 ng/mL (0.00-0.06)
[2018-07-21 08:15] VITALS: BP 97/66
[2018-07-21] MEDS: ZOSYN 3.375GM+NS 50ML 50 ML IV SCH ×3 (08:29→20:53)
[2018-07-21] MEDS ORDERED: GLIP5TAB11 PO (08:34)
[2018-07-21] MEDS ORDERED: CARV3.12 PO (08:34)
[2018-07-21] MEDS ORDERED: PANTOPRAZOLE 40 MG/VIAL IVP SCH (09:00)
[2018-07-21 09:08] LABS: BASOPHILS % (AUTO) 0.2 % (0.0-5.0); HEMATOCRIT 21.7 % (42-54); LYMPHOCYTES % (AUTO) 15.1 % (21.0-51.0); MEAN CORPUSCULAR HEMOGLOBIN 31.8 pg (27.0-33.0); MEAN CORPUSCULAR HGB CONC 35.1 g/dL (32.0-36.0); MEAN CORPUSCULAR VOLUME 90.7 fL (79-99); MONOCYTES % (AUTO) 7.1 % (3.0-13.0); NEUTROPHILS % (AUTO) 77.6 % (40.0-77.0); NUCLEATED RED BLOOD CELLS 3.5 % (0.0-0.19); PLATELET COUNT (AUTO) 224 K/uL (130-400); RED CELL DISTRIBUTION WIDTH 16.5 % (11.0-15.5); WHITE BLOOD COUNT (AUTO) 9.4 K/uL (4.8-10.8)
[2018-07-21 11:08] VITALS: BP 107/66
[2018-07-21] MEDS: PANTOPRAZOLE SODIUM 80 MG in SODIUM CHLORIDE 0.9% 100 ML IV SCH ×2 (11:33→20:53)
[2018-07-21] MEDS ORDERED: IOHEXOL 350 MG/ML 100ML INFUS..BTL IV ONE (11:49)
[2018-07-21 16:57] VITALS: BP 97/61
[2018-07-21 19:21] VITALS: BP 99/65
[2018-07-21 23:46] VITALS: BP 117/70
[2018-07-22] VITALS (13 sets, daily range): BP systolic 94–145; BP diastolic 54–89
[2018-07-22] MEDS: INSULIN HUMULIN R 100 UNIT/ML 3ML SQ SCH ×4 (00:50→17:58)
[2018-07-22] MEDS: ZOSYN 3.375GM+NS 50ML 50 ML IV SCH ×3 (04:44→20:57)
[2018-07-22] MEDS: ZINC OXIDE OINT 56.7 GM TP PRN (06:04)
[2018-07-22 06:31] LABS: HEMATOCRIT 17.9 % (42-54)
[2018-07-22] MEDS ORDERED: SODIUM CHLORIDE 0.9% 500ML 500 ML IV ONE (07:16)
[2018-07-22] MEDS: PANTOPRAZOLE SODIUM 80 MG in SODIUM CHLORIDE 0.9% 100 ML IV SCH (07:29)
[2018-07-22 07:31] LABS: TROPONIN I 0.84 ng/mL (0.00-0.06)
[2018-07-22] MEDS ORDERED: SODIUM CHLORIDE 0.9% 1000ML 1,000 ML IV SCH (11:00)
[2018-07-22] MEDS ORDERED: EPINEPHRINE 1 MG/ML AMPULE ONE (11:39)
[2018-07-22] MEDS ORDERED: PROPOFOL 10 MG/ML 20ML VIAL IV ONE (11:40)
[2018-07-23] MEDS: INSULIN HUMULIN R 100 UNIT/ML 3ML SQ SCH ×4 (00:57→18:38)
[2018-07-23 03:51] VITALS: BP 134/82
[2018-07-23 04:35] LABS: HEMATOCRIT 22.4 % (42-54); MEAN CORPUSCULAR HEMOGLOBIN 29.8 pg (27.0-33.0); MEAN CORPUSCULAR HGB CONC 33.2 g/dL (32.0-36.0); MEAN CORPUSCULAR VOLUME 89.8 fL (79-99); NUCLEATED RED BLOOD CELLS 1.4 % (0.0-0.19); PLATELET COUNT (AUTO) 76 K/uL (130-400); RED CELL DISTRIBUTION WIDTH 14.9 % (11.0-15.5); WHITE BLOOD COUNT (AUTO) 12.3 K/uL (4.8-10.8)
[2018-07-23 04:52] LABS: ALBUMIN 1.8 g/dL (3.5-5.0); BILIRUBIN,TOTAL 0.4 mg/dL (0.2-1.0); CREATININE 1.8 mg/dL (0.5-1.5); CRP QUANTITATIVE 6.3 mg/L (0.00-9.0); TOTAL PROTEIN, SERUM 4.1 g/dL (6.0-8.3)
[2018-07-23 05:02] LABS: POTASSIUM 2.8 mmol/L (3.5-5.1)
[2018-07-23] MEDS: POTASSIUM CHLORIDE 20MEQ/100ML 100 ML IV PRN ×4 (05:10→21:08)
[2018-07-23] MEDS: ZOSYN 3.375GM+NS 50ML 50 ML IV SCH ×3 (05:10→21:08)
[2018-07-23 07:00] VITALS: BP 122/80
[2018-07-23] MEDS: PANTOPRAZOLE SODIUM 80 MG in SODIUM CHLORIDE 0.9% 100 ML IV SCH ×2 (08:30→19:23)
[2018-07-23 11:00] VITALS: BP 131/81
[2018-07-23] MEDS: FLUCONAZOLE 100 MG TAB PO SCH (12:58)
[2018-07-23 16:00] VITALS: BP 129/81
[2018-07-23] MEDS ORDERED: POTASSIUM CHLORIDE 10% ELIXIR 20 MEQ/15 ML UDCUP PO PRN (16:45)
[2018-07-23] MEDS ORDERED: POTASSIUM CHLORIDE 20MEQ/100ML 100 ML IV PRN (16:45)
[2018-07-23] MEDS ORDERED: POTASSIUM CHLORIDE 20 MEQ ERTAB PO PRN (16:45)
[2018-07-23] MEDS ORDERED: LIDOCAINE HCL-MPF 1% 2ML VIAL IVP PRN (16:45)
[2018-07-23] MEDS: CLOTRIMAZOLE 30 GM CREAM.GM. TP SCH (19:24)
[2018-07-23] MEDS: ONDANSETRON HCL 4 MG/2 ML VIAL IV PRN (21:12)
[2018-07-23 23:25] VITALS: BP 134/98
[2018-07-24] VITALS (19 sets, daily range): BP systolic 102–164; BP diastolic 66–91
[2018-07-24 03:51] LABS: BASOPHILS % (AUTO) 0.1 % (0.0-5.0); LYMPHOCYTES % (AUTO) 10.2 % (21.0-51.0); MEAN CORPUSCULAR HEMOGLOBIN 30.1 pg (27.0-33.0); MEAN CORPUSCULAR HGB CONC 33.2 g/dL (32.0-36.0); MEAN CORPUSCULAR VOLUME 90.7 fL (79-99); NEUTROPHILS % (AUTO) 83.7 % (40.0-77.0); PLATELET COUNT (AUTO) 72 K/uL (130-400); RED CELL DISTRIBUTION WIDTH 16.5 % (11.0-15.5); WHITE BLOOD COUNT (AUTO) 8.8 K/uL (4.8-10.8)
[2018-07-24 04:02] LABS: HEMATOCRIT 19.9 % (42-54)
[2018-07-24 04:06] LABS: CREATININE 1.2 mg/dL (0.5-1.5); POTASSIUM 3.5 mmol/L (3.5-5.1)
[2018-07-24] MEDS: ZOSYN 3.375GM+NS 50ML 50 ML IV SCH ×3 (05:17→22:15)
[2018-07-24] MEDS: POTASSIUM CHLORIDE 20MEQ/100ML 100 ML IV PRN ×3 (05:21→22:15)
[2018-07-24] MEDS: INSULIN HUMULIN R 100 UNIT/ML 3ML SQ SCH ×4 (05:39→18:00)
[2018-07-24 05:40] LABS: APPEARANCE,URINE CLEAR (CLEAR); BILIRUBIN,URINE NEGATIVE (NEGATIVE); COLOR,URINE YELLOW (YELLOW); GLUCOSE, URINE (UA) NEGATIVE (NEGATIVE); KETONES,URINE NEGATIVE (NEGATIVE); LEUKOCYTE ESTERASE ,URINE TRACE (NEGATIVE); NITRATE,URINE NEGATIVE (NEGATIVE); OCCULT BLOOD,URINE MODERATE (NEGATIVE); PROTEIN,URINE TRACE (NEGATIVE); UROBILINOGEN,URINE 0.2 mg/dL (0.2-1.0)
[2018-07-24 05:48] LABS: HEMATOCRIT 19.8 % (42-54)
[2018-07-24 05:58] LABS: BACTERIA,URINE Few /HPF (None Seen); URIC ACID CRYSTALS,URINE Many /LPF (None Seen)
[2018-07-24] MEDS ORDERED: SODIUM CHLORIDE 0.9% 250 ML IV ONE (08:14)
[2018-07-24] MEDS ORDERED: PROPOFOL 10 MG/ML 20ML VIAL IV ONE (11:33)
[2018-07-24] MEDS: FLUCONAZOLE 100 MG TAB PO SCH (17:02)
[2018-07-24] MEDS: CLOTRIMAZOLE 30 GM CREAM.GM. TP SCH (18:52)
[2018-07-25 03:50] VITALS: BP 166/106
[2018-07-25 05:11] LABS: BASOPHILS % (AUTO) 0.2 % (0.0-5.0); EOSINOPHILS % (AUTO) 0.2 % (0.0-8.0); HEMATOCRIT 27.3 % (42-54); LYMPHOCYTES % (AUTO) 6.6 % (21.0-51.0); MEAN CORPUSCULAR HEMOGLOBIN 30.6 pg (27.0-33.0); MEAN CORPUSCULAR HGB CONC 33.7 g/dL (32.0-36.0); MEAN CORPUSCULAR VOLUME 90.8 fL (79-99); MONOCYTES % (AUTO) 5.2 % (3.0-13.0); NEUTROPHILS % (AUTO) 87.8 % (40.0-77.0); NUCLEATED RED BLOOD CELLS 0.3 % (0.0-0.19); PLATELET COUNT (AUTO) 66 K/uL (130-400); RED BLOOD CELL COUNT(AUTO) 3.01 MIL/uL (4.50-6.20); RED CELL DISTRIBUTION WIDTH 15.3 % (11.0-15.5); WHITE BLOOD COUNT (AUTO) 7.8 K/uL (4.8-10.8)
[2018-07-25 05:26] LABS: CREATININE 1.1 mg/dL (0.5-1.5); POTASSIUM 3.7 mmol/L (3.5-5.1)
[2018-07-25] MEDS: ZOSYN 3.375GM+NS 50ML 50 ML IV SCH ×3 (05:31→21:03)
[2018-07-25] MEDS: INSULIN HUMULIN R 100 UNIT/ML 3ML SQ SCH ×5 (06:00→21:00)
[2018-07-25 07:18] VITALS: BP 165/97
[2018-07-25] MEDS: FLUCONAZOLE 100 MG TAB PO SCH (09:41)
[2018-07-25 11:06] VITALS: BP 159/96
[2018-07-25] MEDS ORDERED: PHARMACY COMMUNICATION MISC SCH (15:30)
[2018-07-25 16:20] VITALS: BP 153/90
[2018-07-25 19:38] VITALS: BP 150/88
[2018-07-25] MEDS: CLOTRIMAZOLE 30 GM CREAM.GM. TP SCH (21:30)
[2018-07-25] MEDS: ONDANSETRON HCL 4 MG/2 ML VIAL IV PRN (21:49)
[2018-07-25 23:29] VITALS: BP 155/90
[2018-07-26 04:13] VITALS: BP 151/95
[2018-07-26] MEDS: ZOSYN 3.375GM+NS 50ML 50 ML IV SCH ×3 (05:08→21:21)
[2018-07-26 05:26] LABS: BASOPHILS % (AUTO) 0.1 % (0.0-5.0); CORRECTED WHITE BLOOD COUNT 6.3 K/uL (4.5-11.0); EOSINOPHILS % (AUTO) 0.1 % (0.0-8.0); HEMATOCRIT 26.5 % (42-54); LYMPHOCYTES % (AUTO) 6.7 % (21.0-51.0); MEAN CORPUSCULAR HEMOGLOBIN 29.6 pg (27.0-33.0); MEAN CORPUSCULAR HGB CONC 32.5 g/dL (32.0-36.0); MEAN CORPUSCULAR VOLUME 91.2 fL (79-99); MONOCYTES % (AUTO) 4.1 % (3.0-13.0); NUCLEATED RED BLOOD CELLS 5.1 % (0.0-0.19); PLATELET COUNT (AUTO) 53 K/uL (130-400); RED BLOOD CELL COUNT(AUTO) 2.91 MIL/uL (4.50-6.20); WHITE BLOOD COUNT (AUTO) 6.6 K/uL (4.8-10.8)
[2018-07-26 05:35] LABS: CREATININE 0.8 mg/dL (0.5-1.5); POTASSIUM 3.1 mmol/L (3.5-5.1)
[2018-07-26] MEDS: INSULIN HUMULIN R 100 UNIT/ML 3ML SQ SCH ×4 (06:11→21:24)
[2018-07-26] MEDS: POTASSIUM CHLORIDE 20MEQ/100ML 100 ML IV PRN ×2 (06:11→10:37)
[2018-07-26 08:03] VITALS: BP 154/99
[2018-07-26] MEDS: FLUCONAZOLE 100 MG TAB PO SCH (08:18)
[2018-07-26 11:23] VITALS: BP 159/92
[2018-07-26] MEDS: DEXTROSE 5%-WATER 1,000 ML IV SCH (13:58)
[2018-07-26 16:00] VITALS: BP 161/104
[2018-07-26 18:37] LABS: HEMATOCRIT 25.3 % (42-54); MEAN CORPUSCULAR HEMOGLOBIN 30.3 pg (27.0-33.0); MEAN CORPUSCULAR HGB CONC 32.9 g/dL (32.0-36.0); MEAN CORPUSCULAR VOLUME 92.1 fL (79-99); NUCLEATED RED BLOOD CELLS 2.6 % (0.0-0.19); PLATELET COUNT (AUTO) 51 K/uL (130-400); RED BLOOD CELL COUNT(AUTO) 2.75 MIL/uL (4.50-6.20); RED CELL DISTRIBUTION WIDTH 16.2 % (11.0-15.5); WHITE BLOOD COUNT (AUTO) 6.2 K/uL (4.8-10.8)
[2018-07-26 18:38] LABS: CREATININE 1.1 mg/dL (0.5-1.5); POTASSIUM 3.2 mmol/L (3.5-5.1)
[2018-07-26 19:26] VITALS: BP 152/98
[2018-07-26] MEDS: AMINOCAPROIC ACID 500 MG TABLET PO SCH (21:22)
[2018-07-26 23:41] VITALS: BP 147/90
[2018-07-27 04:01] LABS: HEMATOCRIT 25.7 % (42-54); MEAN CORPUSCULAR HEMOGLOBIN 30.5 pg (27.0-33.0); MEAN CORPUSCULAR HGB CONC 33.2 g/dL (32.0-36.0); MEAN CORPUSCULAR VOLUME 91.8 fL (79-99); NUCLEATED RED BLOOD CELLS 2.4 % (0.0-0.19); PLATELET COUNT (AUTO) 56 K/uL (130-400); RED CELL DISTRIBUTION WIDTH 16.3 % (11.0-15.5); WHITE BLOOD COUNT (AUTO) 6.4 K/uL (4.8-10.8)
[2018-07-27 04:12] LABS: CARBON DIOXIDE 31 mmol/L (21-32); CREATININE 0.8 mg/dL (0.5-1.5); GLOMERULAR FILTR. RATE CALC 107 mL/min (>60); GLUCOSE,RANDOM 203 mg/dL (70-105); PHOSPHORUS 2.2 mg/dL (2.5-4.9); POTASSIUM 3.2 mmol/L (3.5-5.1); SODIUM SERUM 159 mmol/L (136-145); UREA NITROGEN, BLOOD 18 mg/dL (7-18)
[2018-07-27 04:15] LABS: CRP QUANTITATIVE < 2.00 mg/L (0.00-9.0)
[2018-07-27 04:35] LABS: CHLORIDE 123 mmol/L (101-111)
[2018-07-27 04:47] VITALS: BP 140/91
[2018-07-27] MEDS: CLOTRIMAZOLE 30 GM CREAM.GM. TP SCH ×2 (05:23→20:49)
[2018-07-27] MEDS: ZOSYN 3.375GM+NS 50ML 50 ML IV SCH ×3 (05:23→20:48)
[2018-07-27] MEDS: DEXTROSE 5%-WATER 1,000 ML IV SCH ×3 (05:24→20:49)
[2018-07-27] MEDS: INSULIN HUMULIN R 100 UNIT/ML 3ML SQ SCH ×4 (06:36→21:00)
[2018-07-27 07:00] VITALS: BP 147/90
[2018-07-27] MEDS ORDERED: MAG HYDROX/AL HYDROX/SIMETH ES 30 ML SUSP UDCUP PO PRN (07:30)
[2018-07-27] MEDS ORDERED: PHARMACY COMMUNICATION MISC SCH (07:30)
[2018-07-27] MEDS: AMINOCAPROIC ACID 500 MG TABLET PO SCH (09:45)
[2018-07-27] MEDS: FLUCONAZOLE 100 MG TAB PO SCH (09:45)
[2018-07-27 11:00] VITALS: BP 135/82
[2018-07-27] MEDS ORDERED: ZOSYN 3.375GM+NS 50ML 50 ML IV SCH (13:00)
[2018-07-27 16:00] VITALS: BP 139/88
[2018-07-27] MEDS ORDERED: POTASSIUM CHLORIDE 20 MEQ ERTAB PO ONE (16:30)
[2018-07-27 19:21] VITALS: BP 133/88
[2018-07-27 23:17] VITALS: BP 137/87
[2018-07-28 04:10] LABS: HEMATOCRIT 24.9 % (42-54); MEAN CORPUSCULAR HEMOGLOBIN 30.1 pg (27.0-33.0); MEAN CORPUSCULAR HGB CONC 32.8 g/dL (32.0-36.0); MEAN CORPUSCULAR VOLUME 91.8 fL (79-99); NUCLEATED RED BLOOD CELLS 0.4 % (0.0-0.19); PLATELET COUNT (AUTO) 54 K/uL (130-400); RED BLOOD CELL COUNT(AUTO) 2.71 MIL/uL (4.50-6.20); RED CELL DISTRIBUTION WIDTH 15.7 % (11.0-15.5); WHITE BLOOD COUNT (AUTO) 6.8 K/uL (4.8-10.8)
[2018-07-28] MEDS: ZOSYN 3.375GM+NS 50ML 50 ML IV SCH ×3 (04:21→19:39)
[2018-07-28 04:29] LABS: CREATININE 0.7 mg/dL (0.5-1.5); MAGNESIUM 1.7 mg/dL (1.80-2.40); POTASSIUM 3.1 mmol/L (3.5-5.1)
[2018-07-28 04:40] VITALS: BP 134/85
[2018-07-28] MEDS ORDERED: LIDOCAINE HCL-MPF 1% 2ML VIAL IVP PRN (04:45)
[2018-07-28] MEDS ORDERED: POTASSIUM CHLORIDE 10% ELIXIR 20 MEQ/15 ML UDCUP PO PRN (04:45)
[2018-07-28] MEDS: POTASSIUM CHLORIDE 20 MEQ ERTAB PO PRN ×2 (05:00→06:28)
[2018-07-28] MEDS: MAGNESIUM 2GM PREMIX 50ML 50 ML IV PRN ×2 (05:01→23:35)
[2018-07-28] MEDS: INSULIN HUMULIN R 100 UNIT/ML 3ML SQ SCH ×4 (06:29→21:00)
[2018-07-28 07:00] VITALS: BP 149/81
[2018-07-28] MEDS ORDERED: DEXTROSE 5%-WATER 1,000 ML IV SCH (09:00)
[2018-07-28] MEDS: AMINOCAPROIC ACID 500 MG TABLET PO SCH ×2 (09:16→19:39)
[2018-07-28] MEDS: FLUCONAZOLE 100 MG TAB PO SCH (09:16)
[2018-07-28] MEDS: AMILORIDE HCL 5 MG TABLET PO SCH (10:09)
[2018-07-28 11:00] VITALS: BP 146/91
[2018-07-28 16:00] VITALS: BP 145/86
[2018-07-28] MEDS: POTASSIUM CHLORIDE 20MEQ/100ML 100 ML IV PRN ×2 (19:39→23:35)
[2018-07-28 19:44] VITALS: BP 138/90
[2018-07-28] MEDS: CLOTRIMAZOLE 30 GM CREAM.GM. TP SCH (21:00)
[2018-07-28 23:19] LABS: MAGNESIUM 1.9 mg/dL (1.80-2.40); POTASSIUM 3.4 mmol/L (3.5-5.1)
[2018-07-28 23:35] VITALS: BP 143/86
[2018-07-29 04:08] VITALS: BP 127/86
[2018-07-29] MEDS: ZOSYN 3.375GM+NS 50ML 50 ML IV SCH ×3 (04:22→21:09)
[2018-07-29 04:27] LABS: BASOPHILS % (AUTO) 0.2 % (0.0-5.0); EOSINOPHILS % (AUTO) 0.2 % (0.0-8.0); HEMATOCRIT 25.1 % (42-54); MEAN CORPUSCULAR HEMOGLOBIN 31.3 pg (27.0-33.0); MEAN CORPUSCULAR HGB CONC 33.7 g/dL (32.0-36.0); MEAN CORPUSCULAR VOLUME 92.7 fL (79-99); MONOCYTES % (AUTO) 3.7 % (3.0-13.0); NEUTROPHILS % (AUTO) 88.9 % (40.0-77.0); NUCLEATED RED BLOOD CELLS 0.5 % (0.0-0.19); PLATELET COUNT (AUTO) 72 K/uL (130-400); RED BLOOD CELL COUNT(AUTO) 2.71 MIL/uL (4.50-6.20); RED CELL DISTRIBUTION WIDTH 16.2 % (11.0-15.5); WHITE BLOOD COUNT (AUTO) 6.9 K/uL (4.8-10.8)
[2018-07-29 04:32] LABS: CREATININE 0.7 mg/dL (0.5-1.5); MAGNESIUM 2.2 mg/dL (1.80-2.40); POTASSIUM 3.5 mmol/L (3.5-5.1)
[2018-07-29] MEDS: POTASSIUM CHLORIDE 20 MEQ ERTAB PO PRN (05:00)
[2018-07-29] MEDS: INSULIN HUMULIN R 100 UNIT/ML 3ML SQ SCH ×4 (05:58→21:00)
[2018-07-29 07:00] VITALS: BP 124/85
[2018-07-29] MEDS: AMINOCAPROIC ACID 500 MG TABLET PO SCH ×2 (09:11→21:10)
[2018-07-29] MEDS: AMILORIDE HCL 5 MG TABLET PO SCH (09:11)
[2018-07-29] MEDS: FLUCONAZOLE 100 MG TAB PO SCH (09:11)
[2018-07-29] MEDS ORDERED: DEXTROSE 5%-WATER 1,000 ML IV SCH (10:15)
[2018-07-29 11:00] VITALS: BP 121/91
[2018-07-29 16:00] VITALS: BP 137/94
[2018-07-29 19:29] VITALS: BP 125/87
[2018-07-29] MEDS: ZINC OXIDE OINT 56.7 GM TP PRN (21:09)
[2018-07-29] MEDS: CLOTRIMAZOLE 30 GM CREAM.GM. TP SCH (21:10)
[2018-07-29 23:23] VITALS: BP 150/87
[2018-07-30 03:40] VITALS: BP 125/89
[2018-07-30] MEDS: ZOSYN 3.375GM+NS 50ML 50 ML IV SCH ×3 (04:25→20:17)
[2018-07-30 04:53] LABS: HEMATOCRIT 24.9 % (42-54); LYMPHOCYTES % (AUTO) 9.3 % (21.0-51.0); MEAN CORPUSCULAR HEMOGLOBIN 30.5 pg (27.0-33.0); MEAN CORPUSCULAR HGB CONC 32.6 g/dL (32.0-36.0); MEAN CORPUSCULAR VOLUME 93.4 fL (79-99); MONOCYTES % (AUTO) 3.4 % (3.0-13.0); NEUTROPHILS % (AUTO) 87.3 % (40.0-77.0); NUCLEATED RED BLOOD CELLS 0.6 % (0.0-0.19); PLATELET COUNT (AUTO) 70 K/uL (130-400); RED BLOOD CELL COUNT(AUTO) 2.66 MIL/uL (4.50-6.20); WHITE BLOOD COUNT (AUTO) 6.5 K/uL (4.8-10.8)
[2018-07-30 05:00] LABS: CREATININE 0.7 mg/dL (0.5-1.5)
[2018-07-30] MEDS: POTASSIUM CHLORIDE 20MEQ/100ML 100 ML IV PRN (05:22)
[2018-07-30] MEDS: INSULIN HUMULIN R 100 UNIT/ML 3ML SQ SCH ×4 (06:47→20:18)
[2018-07-30 07:00] VITALS: BP 136/96
[2018-07-30] MEDS: FLUCONAZOLE 100 MG TAB PO SCH (08:18)
[2018-07-30] MEDS: AMILORIDE HCL 5 MG TABLET PO SCH (08:18)
[2018-07-30] MEDS: POTASSIUM CHLORIDE 20 MEQ ERTAB PO PRN ×3 (08:41→17:43)
[2018-07-30 11:00] VITALS: BP 135/85
[2018-07-30 16:00] VITALS: BP 129/87
[2018-07-30 19:32] VITALS: BP 141/95
[2018-07-30] MEDS: CLOTRIMAZOLE 30 GM CREAM.GM. TP SCH (20:17)
[2018-07-30 23:50] VITALS: BP 135/97
[2018-07-31 03:49] LABS: BASOPHILS % (AUTO) 0.2 % (0.0-5.0); EOSINOPHILS % (AUTO) 0.2 % (0.0-8.0); HEMATOCRIT 25.1 % (42-54); LYMPHOCYTES % (AUTO) 7.4 % (21.0-51.0); MEAN CORPUSCULAR HGB CONC 34.1 g/dL (32.0-36.0); MEAN CORPUSCULAR VOLUME 93.8 fL (79-99); MONOCYTES % (AUTO) 4.2 % (3.0-13.0); NUCLEATED RED BLOOD CELLS 0.9 % (0.0-0.19); PLATELET COUNT (AUTO) 89 K/uL (130-400); RED BLOOD CELL COUNT(AUTO) 2.68 MIL/uL (4.50-6.20); RED CELL DISTRIBUTION WIDTH 17.2 % (11.0-15.5); WHITE BLOOD COUNT (AUTO) 6.4 K/uL (4.8-10.8)
[2018-07-31 03:52] VITALS: BP 137/87
[2018-07-31 03:53] LABS: CREATININE 0.7 mg/dL (0.5-1.5); POTASSIUM 3.6 mmol/L (3.5-5.1)
[2018-07-31] MEDS: ZOSYN 3.375GM+NS 50ML 50 ML IV SCH ×3 (05:25→20:39)
[2018-07-31] MEDS: INSULIN HUMULIN R 100 UNIT/ML 3ML SQ SCH ×4 (06:46→20:56)
[2018-07-31 07:00] VITALS: BP 132/83
[2018-07-31] MEDS: FLUCONAZOLE 100 MG TAB PO SCH (09:22)
[2018-07-31] MEDS: AMILORIDE HCL 5 MG TABLET PO SCH (09:22)
[2018-07-31 11:00] VITALS: BP 123/77
[2018-07-31 16:00] VITALS: BP 143/97
[2018-07-31] MEDS: POTASSIUM CHLORIDE 20MEQ/100ML 100 ML IV PRN (16:07)
[2018-07-31 19:00] VITALS: BP 120/76
[2018-07-31] MEDS: CLOTRIMAZOLE 30 GM CREAM.GM. TP SCH (21:00)
[2018-07-31 23:36] VITALS: BP 133/90
[2018-08-01 03:24] VITALS: BP 158/92
[2018-08-01 04:51] LABS: BASOPHILS % (AUTO) 0.1 % (0.0-5.0); EOSINOPHILS % (AUTO) 0.3 % (0.0-8.0); HEMATOCRIT 23.3 % (42-54); LYMPHOCYTES % (AUTO) 8.5 % (21.0-51.0); MEAN CORPUSCULAR HGB CONC 32.5 g/dL (32.0-36.0); MEAN CORPUSCULAR VOLUME 95.3 fL (79-99); MONOCYTES % (AUTO) 5.1 % (3.0-13.0); NUCLEATED RED BLOOD CELLS 1.1 % (0.0-0.19); PLATELET COUNT (AUTO) 91 K/uL (130-400); RED BLOOD CELL COUNT(AUTO) 2.44 MIL/uL (4.50-6.20); RED CELL DISTRIBUTION WIDTH 21.3 % (11.0-15.5); WHITE BLOOD COUNT (AUTO) 6.3 K/uL (4.8-10.8)
[2018-08-01 04:55] LABS: CREATININE 0.6 mg/dL (0.5-1.5); POTASSIUM 3.7 mmol/L (3.5-5.1)
[2018-08-01] MEDS: POTASSIUM CHLORIDE 20MEQ/100ML 100 ML IV PRN (05:36)
[2018-08-01] MEDS: ZOSYN 3.375GM+NS 50ML 50 ML IV SCH ×3 (05:36→21:39)
[2018-08-01] MEDS: INSULIN HUMULIN R 100 UNIT/ML 3ML SQ SCH ×4 (06:16→21:40)
[2018-08-01 07:43] VITALS: BP 142/93
[2018-08-01] MEDS: AMILORIDE HCL 5 MG TABLET PO SCH (10:30)
[2018-08-01] MEDS ORDERED: EPOETIN ALFA 10,000 UNIT/ML VIAL SQ SCH (10:30)
[2018-08-01] MEDS: FLUCONAZOLE 100 MG TAB PO SCH (10:30)
[2018-08-01 11:48] VITALS: BP 117/70
[2018-08-01 16:53] VITALS: BP 132/84
[2018-08-01 19:00] VITALS: BP 144/94
[2018-08-01] MEDS ORDERED: COMPOUND IV MISC 1 EACH IVSOLN MISC PRN (20:00)
[2018-08-01] MEDS: IRON SUCROSE COMPLEX 100 MG in SODIUM CHLORIDE 0.9% 50 ML IV SCH (21:40)
[2018-08-01] MEDS: EPOETIN ALFA 10,000 UNIT/ML VIAL SQ SCH (21:40)
[2018-08-01] MEDS: CLOTRIMAZOLE 30 GM CREAM.GM. TP SCH (22:08)
[2018-08-01 23:00] VITALS: BP 153/101
[2018-08-01] MEDS ORDERED: MORPHINE SULFATE 4 MG/1ML SYG ONE (23:54)
[2018-08-02 04:00] VITALS: BP 140/93
[2018-08-02 04:09] LABS: HEMATOCRIT 23.6 % (42-54); MEAN CORPUSCULAR HEMOGLOBIN 32.4 pg (27.0-33.0); MEAN CORPUSCULAR HGB CONC 33.7 g/dL (32.0-36.0); MEAN CORPUSCULAR VOLUME 96.2 fL (79-99); NUCLEATED RED BLOOD CELLS 1.5 % (0.0-0.19); PLATELET COUNT (AUTO) 117 K/uL (130-400); RED BLOOD CELL COUNT(AUTO) 2.45 MIL/uL (4.50-6.20); RED CELL DISTRIBUTION WIDTH 21.6 % (11.0-15.5); WHITE BLOOD COUNT (AUTO) 5.9 K/uL (4.8-10.8)
[2018-08-02] MEDS ORDERED: MORPHINE SULFATE 4 MG/1ML SYG IVP PRN ×2 (05:45)
[2018-08-02] MEDS: ZOSYN 3.375GM+NS 50ML 50 ML IV SCH (06:56)
[2018-08-02] MEDS: INSULIN HUMULIN R 100 UNIT/ML 3ML SQ SCH ×3 (06:56→21:00)
[2018-08-02 07:48] VITALS: BP 142/87
[2018-08-02 11:32] VITALS: BP 133/94
[2018-08-02] MEDS: CEFTRIAXONE SODIUM 2 GM VIAL IVP SCH (12:50)
[2018-08-02] MEDS: AMILORIDE HCL 5 MG TABLET PO SCH (12:51)
[2018-08-02] MEDS: ASCORBIC ACID 500 MG TAB PO SCH (13:02)
[2018-08-02] MEDS: METRONIDAZOLE 500MG/100ML BAG 100 ML IV SCH ×2 (13:02→23:10)
[2018-08-02] MEDS: FLUCONAZOLE 100 MG TAB PO SCH (13:03)
[2018-08-02] MEDS ORDERED: PHYTONADIONE 10 MG/1 ML AMP IM SCH (14:30)
[2018-08-02 16:46] VITALS: BP 158/102
[2018-08-02 20:00] VITALS: BP 143/97
[2018-08-02] MEDS: IRON SUCROSE COMPLEX 100 MG in SODIUM CHLORIDE 0.9% 50 ML IV SCH (22:24)
[2018-08-02] MEDS: CLOTRIMAZOLE 30 GM CREAM.GM. TP SCH (22:28)
[2018-08-02 23:00] VITALS: BP 146/101
[2018-08-03 04:00] VITALS: BP 148/91
[2018-08-03 04:49] LABS: ALBUMIN 2.1 g/dL (3.5-5.0); BILIRUBIN,TOTAL 0.4 mg/dL (0.2-1.0); CREATININE 0.6 mg/dL (0.5-1.5); POTASSIUM 3.3 mmol/L (3.5-5.1); TOTAL PROTEIN, SERUM 4.3 g/dL (6.0-8.3)
[2018-08-03] MEDS: METRONIDAZOLE 500MG/100ML BAG 100 ML IV SCH ×3 (05:22→22:00)
[2018-08-03 05:25] LABS: BASOPHILS % (AUTO) 0.2 % (0.0-5.0); EOSINOPHILS % (AUTO) 0.1 % (0.0-8.0); HEMATOCRIT 24.4 % (42-54); MEAN CORPUSCULAR HEMOGLOBIN 31.5 pg (27.0-33.0); MEAN CORPUSCULAR HGB CONC 32.1 g/dL (32.0-36.0); MEAN CORPUSCULAR VOLUME 98.1 fL (79-99); MONOCYTES % (AUTO) 4.8 % (3.0-13.0); NEUTROPHILS % (AUTO) 83.9 % (40.0-77.0); NUCLEATED RED BLOOD CELLS 2.3 % (0.0-0.19); PLATELET COUNT (AUTO) 106 K/uL (130-400); RED BLOOD CELL COUNT(AUTO) 2.49 MIL/uL (4.50-6.20); RED CELL DISTRIBUTION WIDTH 23.1 % (11.0-15.5)
[2018-08-03 05:44] LABS: B-TYPE NATRIURETIC PEPTIDE 362 pg/mL (0-100)
[2018-08-03 06:03] LABS: INR 1.11 (0.85-1.15); PARTIAL THROMBOPLASTIN TIME 25.2 SEC (26.3-35.5); PROTHROMBIN TIME 11.6 SEC (9.6-11.6)
[2018-08-03] MEDS: POTASSIUM CHLORIDE 20MEQ/100ML 100 ML IV PRN ×2 (06:21→11:38)
[2018-08-03] MEDS: INSULIN HUMULIN R 100 UNIT/ML 3ML SQ SCH ×4 (06:37→21:00)
[2018-08-03 07:17] VITALS: BP 139/93
[2018-08-03] MEDS: ASCORBIC ACID 500 MG TAB PO SCH (09:53)
[2018-08-03] MEDS: AMILORIDE HCL 5 MG TABLET PO SCH (09:53)
[2018-08-03] MEDS: CEFTRIAXONE SODIUM 2 GM VIAL IVP SCH (09:59)
[2018-08-03 11:03] VITALS: BP 127/92
[2018-08-03 16:40] VITALS: BP 138/99
[2018-08-03 21:05] VITALS: BP 148/102
[2018-08-03] MEDS: EPOETIN ALFA 10,000 UNIT/ML VIAL SQ SCH (22:00)
[2018-08-03] MEDS: CLOTRIMAZOLE 30 GM CREAM.GM. TP SCH (22:00)
[2018-08-03] MEDS: IRON SUCROSE COMPLEX 100 MG in SODIUM CHLORIDE 0.9% 50 ML IV SCH (22:00)
[2018-08-04] VITALS (7 sets, daily range): BP systolic 117–156; BP diastolic 59–104
[2018-08-04] MEDS ORDERED: PHARMACY COMMUNICATION MISC SCH (04:00)
[2018-08-04] MEDS: INSULIN HUMULIN R 100 UNIT/ML 3ML SQ SCH ×4 (05:26→20:30)
[2018-08-04] MEDS: METRONIDAZOLE 500MG/100ML BAG 100 ML IV SCH ×3 (05:28→22:28)
[2018-08-04] MEDS ORDERED: ZINC OXIDE OINT 56.7 GM TP PRN (08:45)
[2018-08-04] MEDS: LIDOCAINE 5% TOPICAL PATCH TP SCH (09:56)
[2018-08-04] MEDS: AMILORIDE HCL 5 MG TABLET PO SCH (09:56)
[2018-08-04] MEDS: ASCORBIC ACID 500 MG TAB PO SCH (09:56)
[2018-08-04] MEDS: CEFTRIAXONE SODIUM 2 GM VIAL IVP SCH (09:56)
[2018-08-04] MEDS: IRON SUCROSE COMPLEX 100 MG in SODIUM CHLORIDE 0.9% 50 ML IV SCH (20:30)
[2018-08-04] MEDS: CLOTRIMAZOLE 30 GM CREAM.GM. TP SCH (20:32)
[2018-08-05 04:40] VITALS: BP 138/96
[2018-08-05] MEDS: METRONIDAZOLE 500MG/100ML BAG 100 ML IV SCH ×3 (05:46→22:55)
[2018-08-05] MEDS: INSULIN HUMULIN R 100 UNIT/ML 3ML SQ SCH ×4 (05:46→22:14)
[2018-08-05 07:14] LABS: CREATININE 0.6 mg/dL (0.5-1.5); POTASSIUM 3.1 mmol/L (3.5-5.1)
[2018-08-05 08:00] VITALS: BP 153/94
[2018-08-05] MEDS: AMILORIDE HCL 5 MG TABLET PO SCH (09:16)
[2018-08-05] MEDS: ASCORBIC ACID 500 MG TAB PO SCH (09:16)
[2018-08-05 10:36] LABS: BASOPHILS % (AUTO) 0.1 % (0.0-5.0); HEMATOCRIT 27.6 % (42-54); LYMPHOCYTES % (AUTO) 10.9 % (21.0-51.0); MEAN CORPUSCULAR HEMOGLOBIN 31.8 pg (27.0-33.0); MEAN CORPUSCULAR HGB CONC 32.3 g/dL (32.0-36.0); MEAN CORPUSCULAR VOLUME 98.5 fL (79-99); MONOCYTES % (AUTO) 4.4 % (3.0-13.0); NEUTROPHILS % (AUTO) 84.6 % (40.0-77.0); NUCLEATED RED BLOOD CELLS 2.1 % (0.0-0.19); PLATELET COUNT (AUTO) 120 K/uL (130-400); RED CELL DISTRIBUTION WIDTH 23.6 % (11.0-15.5); WHITE BLOOD COUNT (AUTO) 6.5 K/uL (4.8-10.8)
[2018-08-05 10:51] LABS: INR 1.14 (0.85-1.15); PARTIAL THROMBOPLASTIN TIME 26.2 SEC (26.3-35.5); PROTHROMBIN TIME 11.9 SEC (9.6-11.6)
[2018-08-05 11:00] VITALS: BP 157/74
[2018-08-05] MEDS: LIDOCAINE 5% TOPICAL PATCH TP SCH (12:38)
[2018-08-05] MEDS: POTASSIUM CHLORIDE 20 MEQ ERTAB PO PRN ×3 (12:39→21:59)
[2018-08-05] MEDS: CEFTRIAXONE SODIUM 2 GM VIAL IVP SCH (15:58)
[2018-08-05 16:00] VITALS: BP 132/90
[2018-08-05] MEDS ORDERED: ALTEPLASE 2 MG/2 ML IVCATH SCH (16:30)
[2018-08-05 20:16] VITALS: BP 136/94
[2018-08-05] MEDS: IRON SUCROSE COMPLEX 100 MG in SODIUM CHLORIDE 0.9% 50 ML IV SCH (21:58)
[2018-08-05] MEDS: EPOETIN ALFA 10,000 UNIT/ML VIAL SQ SCH (21:58)
[2018-08-05] MEDS: CLOTRIMAZOLE 30 GM CREAM.GM. TP SCH (21:59)
[2018-08-06 00:16] VITALS: BP 141/93
[2018-08-06 04:20] VITALS: BP 145/97
[2018-08-06] MEDS: METRONIDAZOLE 500MG/100ML BAG 100 ML IV SCH ×3 (06:03→21:37)
[2018-08-06] MEDS: INSULIN HUMULIN R 100 UNIT/ML 3ML SQ SCH ×4 (06:03→21:00)
[2018-08-06 08:06] VITALS: BP 147/98
[2018-08-06] MEDS: LIDOCAINE 5% TOPICAL PATCH TP SCH (09:13)
[2018-08-06] MEDS: ASCORBIC ACID 500 MG TAB PO SCH (09:13)
[2018-08-06] MEDS: AMILORIDE HCL 5 MG TABLET PO SCH (09:13)
[2018-08-06 11:45] VITALS: BP 161/96
[2018-08-06] MEDS: CEFTRIAXONE SODIUM 2 GM VIAL IVP SCH (12:01)
[2018-08-06 16:00] VITALS: BP 132/89
[2018-08-06 20:00] VITALS: BP 143/96
[2018-08-06] MEDS: CLOTRIMAZOLE 30 GM CREAM.GM. TP SCH (21:36)
[2018-08-06] MEDS: IRON SUCROSE COMPLEX 100 MG in SODIUM CHLORIDE 0.9% 50 ML IV SCH (21:37)
[2018-08-06] MEDS: CARVEDILOL 3.125 MG TABLET PO SCH (21:37)
[2018-08-07 00:10] VITALS: BP 129/84
[2018-08-07 03:49] VITALS: BP 159/93
[2018-08-07] MEDS: METRONIDAZOLE 500MG/100ML BAG 100 ML IV SCH ×3 (06:11→22:27)
[2018-08-07] MEDS: INSULIN HUMULIN R 100 UNIT/ML 3ML SQ SCH ×4 (06:19→21:00)
[2018-08-07 08:00] VITALS: BP 155/96
[2018-08-07] MEDS: LIDOCAINE 5% TOPICAL PATCH TP SCH (08:00)
[2018-08-07] MEDS: METFORMIN HCL 500 MG TABLET PO SCH (08:05)
[2018-08-07] MEDS: ASPIRIN 81 MG EC TAB PO SCH (08:05)
[2018-08-07] MEDS: LOSARTAN 100 MG TABLET PO SCH (08:05)
[2018-08-07] MEDS: ATORVASTATIN CALCIUM 10 MG TABLET PO SCH (08:05)
[2018-08-07] MEDS: GLIPIZIDE 5 MG TABLET PO SCH (08:06)
[2018-08-07] MEDS: CARVEDILOL 3.125 MG TABLET PO SCH ×2 (08:06→22:28)
[2018-08-07] MEDS: ASCORBIC ACID 500 MG TAB PO SCH (08:06)
[2018-08-07] MEDS: AMILORIDE HCL 5 MG TABLET PO SCH (08:55)
[2018-08-07] MEDS ORDERED: AMLODIPINE BESYLATE 5 MG TAB PO SCH (09:00)
[2018-08-07 11:00] VITALS: BP 149/94
[2018-08-07] MEDS: CEFTRIAXONE SODIUM 2 GM VIAL IVP SCH (11:01)
[2018-08-07 16:00] VITALS: BP 143/94
[2018-08-07 20:00] VITALS: BP 142/102
[2018-08-07] MEDS: IRON SUCROSE COMPLEX 100 MG in SODIUM CHLORIDE 0.9% 50 ML IV SCH (21:09)
[2018-08-07] MEDS: CLOTRIMAZOLE 30 GM CREAM.GM. TP SCH (21:17)
[2018-08-08] VITALS: BP 138/97
[2018-08-08 04:00] VITALS: BP 145/96
[2018-08-08] MEDS: METRONIDAZOLE 500MG/100ML BAG 100 ML IV SCH ×2 (05:44→12:23)
[2018-08-08 06:53] LABS: HEMATOCRIT 28.3 % (42-54); MEAN CORPUSCULAR HEMOGLOBIN 33.5 pg (27.0-33.0); MEAN CORPUSCULAR HGB CONC 32.9 g/dL (32.0-36.0); MEAN CORPUSCULAR VOLUME 101.7 fL (79-99); NUCLEATED RED BLOOD CELLS 1.6 % (0.0-0.19); PLATELET COUNT (AUTO) 142 K/uL (130-400); RED BLOOD CELL COUNT(AUTO) 2.78 MIL/uL (4.50-6.20); RED CELL DISTRIBUTION WIDTH 24.9 % (11.0-15.5); WHITE BLOOD COUNT (AUTO) 6.6 K/uL (4.8-10.8)
[2018-08-08] MEDS: INSULIN HUMULIN R 100 UNIT/ML 3ML SQ SCH ×3 (06:56→16:30)
[2018-08-08 07:03] LABS: ALBUMIN 2.2 g/dL (3.5-5.0); BILIRUBIN,TOTAL 0.5 mg/dL (0.2-1.0); CREATININE 0.6 mg/dL (0.5-1.5); MAGNESIUM 1.7 mg/dL (1.80-2.40); POTASSIUM 3.3 mmol/L (3.5-5.1); TOTAL PROTEIN, SERUM 4.5 g/dL (6.0-8.3)
[2018-08-08 08:00] VITALS: BP 165/97
[2018-08-08 08:09] LABS: BAND NEUTROPHILS % (MANUAL) 1 % (0-2); LYMPHOCYTES % (MANUAL) 6 % (22-44); MAN.DIFF COMMENT-IMPRESSION MANUAL DIFFERENTIAL; MONOCYTES % (MANUAL) 3 % (2-9); PLATELET MORPHOLOGY COMMENT ADEQUATE; SEGMENTED NEUTROPHILS % 90 % (40-70)
[2018-08-08] MEDS: AMILORIDE HCL 5 MG TABLET PO SCH (09:23)
[2018-08-08] MEDS: GLIPIZIDE 5 MG TABLET PO SCH (09:23)
[2018-08-08] MEDS: METFORMIN HCL 500 MG TABLET PO SCH (09:24)
[2018-08-08] MEDS: CARVEDILOL 3.125 MG TABLET PO SCH (09:25)
[2018-08-08] MEDS: ATORVASTATIN CALCIUM 10 MG TABLET PO SCH (09:25)
[2018-08-08] MEDS: ASCORBIC ACID 500 MG TAB PO SCH (09:25)
[2018-08-08] MEDS: LOSARTAN 100 MG TABLET PO SCH (09:25)
[2018-08-08] MEDS: ASPIRIN 81 MG EC TAB PO SCH (09:25)
[2018-08-08] MEDS: LIDOCAINE 5% TOPICAL PATCH TP SCH (09:49)
[2018-08-08 11:00] VITALS: BP 135/84
[2018-08-08] MEDS: CEFTRIAXONE SODIUM 2 GM VIAL IVP SCH (12:12)
[2018-08-08 16:00] VITALS: BP 161/99
== END 2018-08-08 19:20 | DRG 720 ==
LOC: EDH 00:26 → EDHIP 03:21 → 2DH 05:52 → 4BH 08-03 20:09
PROVIDERS: ADMIT Internal Medicine; ATTEND Internal Medicine
PROC: 30233L1 Transfusion of Nonautologous Fresh Plasma into Peripheral Vein, Percutaneous Approach (ICD-10-PCS; principal; 2018-07-21)
PROC: 30233N1 Transfusion of Nonautologous Red Blood Cells into Peripheral Vein, Percutaneous Approach (ICD-10-PCS; 2018-07-21)
PROC: 30233K1 Transfusion of Nonautologous Frozen Plasma into Peripheral Vein, Percutaneous Approach (ICD-10-PCS; 2018-07-21)
PROC: 0W3P8ZZ Control Bleeding in Gastrointestinal Tract, Via Natural or Artificial Opening Endoscopic (ICD-10-PCS; 2018-07-22)
PROC: 3E0G8GC Introduction of Other Therapeutic Substance into Upper GI, Via Natural or Artificial Opening Endoscopic (ICD-10-PCS; 2018-07-22)
PROC: 0DJ08ZZ Inspection of Upper Intestinal Tract, Via Natural or Artificial Opening Endoscopic (ICD-10-PCS; 2018-07-24)
DX: A41.9 Sepsis, unspecified organism (principal); I21.4 Non-ST elevation (NSTEMI) myocardial infarction; J96.90 Respiratory failure, unspecified, unspecified whether with hypoxia or hypercapnia; N17.0 Acute kidney failure with tubular necrosis; K26.4 Chronic or unspecified duodenal ulcer with hemorrhage; E11.22 Type 2 diabetes mellitus with diabetic chronic kidney disease; D62 Acute posthemorrhagic anemia; D69.6 Thrombocytopenia, unspecified; E83.42 Hypomagnesemia; E87.0 Hyperosmolality and hypernatremia; E78.00 Pure hypercholesterolemia, unspecified; E87.6 Hypokalemia; I25.10 Atherosclerotic heart disease of native coronary artery without angina pectoris; N18.9 Chronic kidney disease, unspecified; I12.9 Hypertensive chronic kidney disease with stage 1 through stage 4 chronic kidney disease, or unspecified chronic kidney disease; K29.01 Acute gastritis with bleeding; T81.31XA Disruption of external operation (surgical) wound, not elsewhere classified, initial encounter; Y83.9 Surgical procedure, unspecified as the cause of abnormal reaction of the patient, or of later complication, without mention of misadventure at the time of the procedure; D50.9 Iron deficiency anemia, unspecified; E78.5 Hyperlipidemia, unspecified; E66.01 Morbid (severe) obesity due to excess calories; M00.9 Pyogenic arthritis, unspecified; K21.0 Gastro-esophageal reflux disease with esophagitis; R53.81 Other malaise; K31.89 Other diseases of stomach and duodenum; K31.811 Angiodysplasia of stomach and duodenum with bleeding; Z68.33 Body mass index [BMI] 33.0-33.9, adult; I25.2 Old myocardial infarction; Y92.89 Other specified places as the place of occurrence of the external cause; Z80.9 Family history of malignant neoplasm, unspecified; Z82.49 Family history of ischemic heart disease and other diseases of the circulatory system
CPT/HCPCS: 36415; 43235; 43255; 71045; 71110; 71275; 72128; 72131; 80048; 80053; 80061; 80076; 80339; 81001; 82550; 82948; 83036; 83540; 83550; 83735; 83874; 83880; 83930; 83935; 84100; 84132; 84300; 84484; 85014; 85018; 85025; 85027; 85060; 85610; 85730; 86140; 86850; 86900; 86901; 86922; 86927; 87040; 87088; 93005; 93306; 93970; 97039; 99291; A4218; A4344; C9113; J0171; J0696; J0885; J1756; J1815; J2270; J2405; J2543; J2704; J2997; J3430; J3475; J3480; J3490; J7030; J7040; J7070; P9016; P9017; Q9967

== ENCOUNTER 2018-09-28 08:55 | Emergency (ER) | payer OTHER ==
[~2018-09-28 08:55] MED LIST changes: -AMLO5TAB7 PO; +AMLO5TAB9 PO; +CARV3.12 PO; +GLIP5TAB11 PO; -LOSA50TA25 PO; +LOSA50TA64 PO; -METF-444 PO
[2018-09-28] MEDS ORDERED: EPINEPHRINE 0.1 MG/ML 10 ML SYG IVP ONE (12:00)
[2018-09-28] MEDS ORDERED: ATROPINE SULFATE 0.1 MG/ML 10 ML SYG IVP ONE (12:00)
[2018-09-28] MEDS ORDERED: SODIUM BICARB 8.4% 50ML SYRINGE IVP ONE (12:00)
== END 2018-09-28 14:45 | disposition expired ==
LOC: EDH 08:55
DX: I46.9 Cardiac arrest, cause unspecified (principal); E11.9 Type 2 diabetes mellitus without complications; K21.9 Gastro-esophageal reflux disease without esophagitis; E78.5 Hyperlipidemia, unspecified; I10 Essential (primary) hypertension
CPT/HCPCS: 31500; 82948; 92950; 99291; J0171; J0461; J3490